=== PATIENT | female | born 1985 | race Caucasian/White ===

== ENCOUNTER → 2016-08-15 | Day surgery (SDC) | payer OTHER ==
[~2016-08-15] MED LIST: ACETAMINOPHEN PO; BACTRIM DS TABL1 TA1 PO; BENTYL20 MG PO; COLACE PO; FAMOTIDINE20 M1 PO; KEFLEX500 M1 PO; LEVO-T25 MCG PO; LOW OGESTREL PO; MILK OF MAGNESIA PO; MULTI VITAMIN1 EACH PO; NAPROSYN250 M1 PO; NORCO 5/325 TAB1 TAB PO; PERCOCET 7.5-31 EACH PO; PERCOCET5/325 PO; PHENERGAN25 M1 PO; TUMS CALCI300 MG( 75 PO; ZYVOX600 MG PO
--- NOTE | ~2016-08-15 | OR ---
Unit #: [id number] #: [id number] Patient: KAREN WALLACE [id number] [address] [address] [id number] MR#: [id number] NAME: KAREN WALLACE ROOM: Date of Procedure: 08/15/2016 Admission Date: 08/15/2016 Surgeon: Porfirio Johnson M.D. : 1985 Attending Physician: Porfirio Johnson M.D. Primary Care Physician: Caitlin Waters M.D. OPERATIVE REPORT PREOPERATIVE DIAGNOSIS Right ureteral stone. POSTOPERATIVE DIAGNOSIS Right renal colic. PROCEDURES PERFORMED Cystoscopy, right retrograde pyelogram. ANESTHESIA General. FINDINGS No stone on retrograde. DESCRIPTION OF PROCEDURE After informed consent, she was taken to the operating room, placed under general anesthetic, positioned in lithotomy. Her vagina and perineum were prepped and draped in the usual sterile fashion. Cystoscopy was performed showing a normal urethra and bladder. The entire bladder was inspected. There were no tumors and no stones visible. The right and left ureteral orifices appeared normal with inspection. Retrograde pyelogram was performed, and there were no filling defects or calcification along the course of the ureter. I double-checked the CT scan report and the film while in the cysto room to confirm that the stone had previously been identified at the UVJ on the right; this was from 07/29/2016. There was no filling defect. There was no hydronephrosis. There was no stone at the UVJ on cystoscopy. She apparently passed the stone at some point in time. She had no hydronephrosis. I did not perform ureteroscopy. I did place a wire alongside in the ureter. I did not feel any foreign body or have any trouble passing the wire. Her bladder was drained. The Pollack catheter and wire were removed. She will be discharged home; return to see me as needed as an outpatient. She tolerated the procedure well. Dictated by... Ingrid SmithB/modl TD: 08/16/2016 04:29 Unit #: [id number] #: [id number] Patient: KAREN WALLACE JOB #: [id number] OPERATIVE REPORT Page 1 of 1 X Porfirio Johnson MD PROCEDURE OPERATIVE NOTE
--- NOTE | ~2016-08-15 | EKG ---
PATIENT: KAREN WALLACE UNIT #: [id number] Ventricular Rate: 68 BPM Atrial Rate: 68 BPM P-R Interval: 132 ms QRS Duration: 88 ms Q-T Interval: 398 ms QTC Calculation(Bezet): 423 ms P Morris: 22 degrees Calculated R Morris: 30 degrees Calculated T Morris: 41 degrees Diagnosis Line: Normal sinus rhythm Diagnosis Line: Normal ECG Diagnosis Line: When compared with ECG of 29-MAY-2014 10:46, Diagnosis Line: No significant change was found Diagnosis Line: Confirmed by SANTIAGO LEON MD ([id number]) on Diagnosis Line: 08/15/2016 4:28:37 PM INTERPRETING MD: MOSES
[2016-08-15 13:39] LABS: BUN/CREATININE RATIO 17.14; CREATININE SERUM 0.7 mg/dL (0.6-1.4); GLOM FILT RATE Estimated 117.9 mL/min (>60); POTASSIUM 4.1 mmol/L (3.5-5.1)
== END | disposition home or self-care (01) ==
LOC: CSUR 12:32
PROVIDERS: Urology
DX: N23 Unspecified renal colic (principal); E89.0 Postprocedural hypothyroidism; F17.210 Nicotine dependence, cigarettes, uncomplicated; Z98.890 Other specified postprocedural states; Z87.442 Personal history of urinary calculi; Z79.899 Other long term (current) drug therapy; Z88.5 Allergy status to narcotic agent; Z98.51 Tubal ligation status
CPT/HCPCS: 80048; 93005; J0690; J2250; J2405; J3010